=== PATIENT | female | born 1980 | race Caucasian/White ===

== ENCOUNTER 2021-07-26 20:01 | Emergency (ER) | payer MEDICAID ==
[~2021-07-26] VITALS: Ht 170.2 cm; Wt 92.6 kg
[~2021-07-26 20:01] MED LIST: QUET400T PO
[2021-07-26 20:04] VITALS: BP 127/58
[2021-07-26] MEDS ORDERED: CEPH500C2 MT (20:53)
== END 2021-07-26 23:56 | disposition home or self-care (01) ==
LOC: ER 20:01
DX: T88.0XXA Infection following immunization, initial encounter (principal); L03.113 Cellulitis of right upper limb; T50.B95A Adverse effect of other viral vaccines, initial encounter; Y92.018 Other place in single-family (private) house as the place of occurrence of the external cause
CPT/HCPCS: 99283